=== PATIENT | female | born 1965 | race Caucasian/White ===

== ENCOUNTER → 2020-04-27 11:18 | Outpatient (CLI) | payer BC, SELFPAY ==
[2020-04-27 11:34] LABS: Chloride 107 mmol/L (98-107); Sodium 140 mmol/L (136-145)
[2020-04-27 11:35] LABS: Basophils # 0.1 K/mm3 (0-0.2); Eosinophils # 0.2 K/mm3 (0.0-0.4); Eosinophils % 2.7 % (0.1-12.0); Hematocrit 48.9 % (37.0-47.0); Hemoglobin 14.9 g/dL (12.2-16.2); Lymphocytes # 2.2 K/mm3 (0.7-4.5); Lymphocytes % 26.9 % (10-50); Mean Corpuscular HGB Conc 30.5 g/dL (31.8-35.4); Mean Corpuscular Hemoglobin 29.2 pg (27.0-31.2); Mean Corpuscular Volume 95.6 fl (81-99); Mean Platelet Volume 11.9 fl (7.4-10.4); Monocytes # 0.6 K/mm3 (0.1-1.0); Monocytes % 7.7 % (1.7-9.3); Neutrophils % 61.6 % (37.0-80.0); Platelet Count 265 K/mm3 (142-424); Potassium 4.3 mmoL/L (3.5-5.1); Red Blood Count 5.11 M/mm3 (4.20-5.40); Red Cell Distribution Width 12.7 % (11.5-17.5); White Blood Count 8.1 K/mm3 (4.8-10.8)
[2020-04-27 11:37] LABS: Alanine Aminotransferase 12 U/L (12-78); Albumin Level 4.7 g/dl (3.5-5.0); Albumin/Globulin Ratio 1.7 (1.1-1.8); Alkaline Phosphatase 47 U/L (38-126); Anion Gap 12.3 mEq/L (5-15); Aspartate Amino Transferase 24 U/L (14-36); Bilirubin,Total 0.5 mg/dl (0.2-1.3); Blood Urea Nitrogen 19 mg/dl (7-17); Carbon Dioxide 25 mmol/L (22.0-30.0); Cholesterol 225 mg/dl (140-200); Estimated Glomerular Filt Rate 75 ml/min (>60); GFR (African American) 90 ML/MIN (>60); Globulin 2.8 g/dL (1.3-3.2); Total Protein,Serum 7.5 g/dl (6.3-8.2); Triglycerides 92 mg/dl (30-150); VLDL Cholesterol 18 mg/dL (0-40)
[2020-04-27 11:38] LABS: Calcium 9.9 mg/dl (8.4-10.2); Chol/HDL Ratio 2.7 (1-3.5); Glucose 79 mg/dl (74-100); HDL Cholesterol 84 mg/dl (40-60)
[2020-04-27 11:49] LABS: Direct LDL Cholesterol 112.32 mg/dL (100-129)
[2020-04-27 11:54] LABS: Free T4 (Free Thyroxine) 1.03 ng/dl (0.78-2.19)
[2020-04-27 11:56] LABS: 25-OH Vitamin D, Total 28.4 ng/mL (30-100)
[2020-04-27 12:08] LABS: Thyroid Stimulating Hormone 1.25 uIU/mL (0.465-4.68)
== END ==
PROVIDERS: Visit Provider Physician Assistant
DX: Z00.00 Encounter for general adult medical examination without abnormal findings (principal); E55.9 Vitamin D deficiency, unspecified; Z79.899 Other long term (current) drug therapy
CPT/HCPCS: 80053; 80061; 82306; 84439; 84443; 85025

== ENCOUNTER → 2022-06-28 15:28 | Outpatient (POV) | payer BC, SELFPAY | PROVIDERS: Visit Provider Specialist/Technologist | DX: Z00.00 Encounter for general adult medical examination without abnormal findings (principal) ==

== ENCOUNTER 2023-08-12 13:44 | Emergency (ER) | payer SELFPAY ==
[2023-08-12 13:55] VITALS: BP 134/82; PULSE 77; RESP 19; TEMP 36.6; O2SAT 96; BMI 19.5
--- NOTE | 2023-08-12 14:18 | ED_ITS ---
Discharge Plan Disposition Patient Disposition: Home, Self-Care Condition: Good Prescriptions Prescriptions: New methylprednisolone [Medrol (Ghassan)] 4 mg tablets,dose pack See Rx Instructions .Route .COMPLEX 6 Days Qty: 21 0RF Rx Instructions: taper pack; guaifenesin [Mucinex] 600 mg tablet extended release 12hr 600 mg PO BID PRN (Reason: cough) Qty: 20 0RF doxycycline hyclate 100 mg capsule 100 mg PO BID 10 Days Qty: 20 0RF albuterol sulfate [Proventil HFA] 90 mcg/actuation HFA aerosol inhaler 1 - 2 inh inhalation Q6H PRN (Reason: shortness of breath or wheezing) Qty: 8.5 0RF promethazine-DM 6.25-15 mg/5 mL syrup 5 ml PO Q6H PRN (Reason: cough) Qty: 118 0RF Referrals Follow up/Referrals: Provider,Referral, MD [Primary Care Provider] - See instructions Activity Restrictions/Add. Instructions Additional Instructions/Restrictions: * Start antibiotic today. Be sure to complete entire prescription even if feeling better * Monitor temp. Tylenol every 4 hours as needed and / or ibuprofen every 6 hours as needed ( As long as your primary care physician has told you that it ok to take both. For fever/aches/pains ER if no less than 101 despite Tylenol or Motrin * Humidifier/vaporizer or hot steamy shower * Inhaler every 4-6 hours as needed like we discussed. If unsure how to use it, ask pharmacist to demonstrate how. Should help open airways and improve cough, wheezing, and shortness of breath * Mucinex during the day for your cough and cough suppressant only at night. Be sure to drink lots of water. *Promethazine DM cough syrup will cause drowsiness. Use only at night. No driving, operating machinery or caring for small children after taking it *Start steroid today. Helps with inflammation therefore, cough and wheezing. Follow directions on the package. Reviewed side effects. Patient reports taking them before. Follow up IMMEDIATELY for new or worsening of symptoms OR no noticeable improvement over the next 48-72 hours. 911 immediately for any life threatening symptoms such as chest pain or difficulty breathing Clinical Impressions Clinical Impression: Bronchitis Sinusitis Qualifiers: Sinusitis location: unspecified location Chronicity: unspecified Qualified Code(s): J32.9 - Chronic sinusitis, unspecified Instructions Patient Instructions: DI for Sinusitis, Acute Bronchitis Discharge ED [place]e [place] [facility] [place] General Stated complaint: cough, soa Mode of Arrival: Ambulatory Source of Information: Patient Limitations: No Limitations Time Seen by Provider: 08/12/23 14:18 Description of Symptoms (Recalled from Triage Doc. by RN): PATIENT C/O COUGH, CONGESTION, YELLOW DRAINAGE, AND SOA AT TIMES X 1 WEEK HEENT Symptoms (Recalled from RN notes): Yes Resp Symptoms (Recalled from RN notes): Yes Skin Symptoms (Recalled from RN notes): No MS Symptoms (Recalled from RN notes): No Functional Status (Recalled from RN notes): WNL History of Present Illness Provider Complaint: Patient states that she has been sick for over a week with sinus congestion and pressure, drainage in the back of her throat, thick yellow discharge cough and at times feeling short of breath after coughing episode so today when she was still having symptoms and not feeling any better Related Data Previous Rx's Medication Instructions Recorded albuterol sulfate 90 mcg/actuation 1 - 2 inh inhalation Q6H PRN 08/12/23 aerosol inhaler (Proventil HFA) shortness of breath or wheezing #8.5 grams doxycycline hyclate 100 mg capsule 100 mg PO BID 10 days #20 caps 08/12/23 guaifenesin 600 mg tablet, 600 mg PO BID PRN cough #20 tabs 08/12/23 extended release 12 hr (Mucinex) methylprednisolone 4 mg tablets in See Rx Instructions .Route 08/12/23 a dose pack (Medrol (Ghassan)) .COMPLEX 6 days #21 tabs promethazine-DM 6.25 mg-15 mg/5 mL 5 ml PO Q6H PRN cough #118 mL 08/12/23 oral syrup Allergies Allergy/AdvReac Type Severity Reaction Status Date / Time penicillin G Allergy Mild Rash Verified 07/05/22 15:39 Worker's Comp Is this a Worker's Comp case?: No [facility] Disclaimer: The information contained in this section may have been updated after the patient was seen, as this information can be updated by other users. Medical History (Updated 08/12/23 @ 14:33 by Gaye Deras APRN) Hearing loss in right ear Vertigo Bilateral hearing loss Cerumen in auditory canal on examination Otalgia, right ear Bilateral impacted cerumen Nasal septal perforation Allergic rhinitis Insomnia Anxiety Social History Smoking Status: Never smoker alcohol intake: never substance use type: denies use current occupational status: employed Travel in the last 8 weeks: None ROS Obtained: Yes All systems reviewed & no additional complaints except as documented and Yes Systems reviewed as appropriate & no additional complaints except as documented Constitutional Constitutional: Reports system reviewed and no additional complaints, except as documented and Reports as per HPI ENT Ears, Nose, Mouth, and Throat: Reports system reviewed and no additional complaints, except as documented, Reports as per HPI, Reports sinus pain, Reports sinus pressure and Reports sore throat Cardiovascular Cardiovascular: Reports system reviewed and no additional complaints, except as documented and Reports as per HPI Respiratory Respiratory: Reports system reviewed and no additional complaints, except as documented, Reports as per HPI, Reports shortness of breath, Reports chest congestion and Reports cough Physical Exam General General appearance: alert and in no apparent distress ENT ENT exam: Present mucous membranes moist Expanded ENT Exam Nose exam: Present sinus tenderness Throat exam: Present other (pnd noted) Respiratory Respiratory exam: Present normal lung sounds bilaterally; Absent respiratory distress or wheezes Cardiovascular Cardiovascular exam: Present regular rate, normal rhythm and normal heart sounds Neurological Exam Neurological exam: Present alert, oriented X3 and normal gait Medical Decision Making Caden Inquiry Pt receiving controlled substance: No Caden was queried for this patient: No Vital Signs: 08/12/23 13:55 Temperature 97.9 F Temperature Source Oral Pulse Rate [Left Brachial] 77 Respiratory Rate 19 Blood Pressure [Left Arm] 134/82 Blood Pressure Mean [Left Arm] 99 Blood Pressure Source [Left Arm] Automatic Cuff Blood Pressure Position [Left Arm] Sitting 02 Sat by Pulse Oximetry 96 Oxygen Delivery Method Room Air Lab Data Lab results reviewed: Yes I reviewed the patient's lab results.
[2023-08-12 14:35] VITALS: BP 134/82; PULSE 77; RESP 19; TEMP 36.6; O2SAT 96
== END 2023-08-12 14:41 | disposition home or self-care (01) ==
PROVIDERS: Emergency Provider Nurse Practitioner
DX: J40 Bronchitis, not specified as acute or chronic (principal); J32.9 Chronic sinusitis, unspecified; R05.9 Cough, unspecified; R06.02 Shortness of breath; F41.9 Anxiety disorder, unspecified
CPT/HCPCS: 99204; 99212; G0463

== ENCOUNTER 2023-08-15 16:46 | Outpatient (CLI) | payer SELFPAY ==
--- NOTE | 2023-08-15 16:53 | XR_ITS ---
PROCEDURE INFORMATION: Exam: XR Chest Exam date and time: 08/15/2023 4:57 PM Age: 57 years old Clinical indication: Cough and shortness of breath and wheezing; Additional info: R/O pna, dyspnea, bronchitis, cough TECHNIQUE: Imaging protocol: Radiologic exam of the chest. Views: 2 views. COMPARISON: No relevant prior studies available. FINDINGS: Lungs: Normal. Pleural spaces: Normal. No pleural effusion. No pneumothorax. Heart/Mediastinum: Normal. No cardiomegaly. Vasculature: Mild atherosclerotic plaque in the thoracic aorta. Bones/joints: Unremarkable. IMPRESSION: No acute findings.
== END 2023-08-15 23:59 ==
LOC: RAD 16:48
PROVIDERS: PCP Nurse Practitioner Family; Visit Provider Nurse Practitioner Family
DX: R06.00 Dyspnea, unspecified (principal); J40 Bronchitis, not specified as acute or chronic; R05.8 Other specified cough; R07.81 Pleurodynia
CPT/HCPCS: 71046